=== PATIENT | male | born 1970 | race American Indian/Alaskan Native ===

== ENCOUNTER 2021-08-15 16:39 | Emergency (ER) | payer SELFPAY ==
[2021-08-15 20:56] VITALS: BP 153/104
[2021-08-15] MEDS ORDERED: SODIUM CHLORIDE 0.9% 1000 ML 1,000 ML IV ONE (23:25)
[2021-08-15] MEDS ORDERED: ONDANSETRON 4 MG/2 ML INJ IV ONE (23:25)
--- NOTE | 2021-08-15 23:38 | Emergency Department Report ---
HPI - General Chief Complaint: Dyspnea/Respdistress Time Seen by Provider: 08/15/21 23:23 - HPI HPI: 50-year-old -[place] male presents to the emergency department with a complaint of nausea, vomiting, mixed dry and productive cough, and shortness of breath with exertion. This has been going on for the past 4 to 5 days. Associated with decreased appetite and generalized weakness. He denies any past medical history. No recent travel or sick contacts at home. He is not vaccinated for COVID-19. He has not taken anything for his symptoms prior to presentation today. ED Past Medical Hx - Medications Home Medications: Home Medications Medication Instructions Recorded Confirmed Last Taken Type Albuterol Mdi (or & Nicu Only) 2 puff IH QID PRN #8.5 gram 08/16/21 Unknown Rx [ProAir HFA Inhaler] Azithromycin [Zithromax Z-JAMES] 250 mg PO DAILY #6 tab 08/16/21 Unknown Rx Benzonatate [Tessalon Perles] 100 mg PO Q8HR PRN #20 cap 08/16/21 Unknown Rx Promethazine [Phenergan] 25 mg PO Q8HR PRN #15 tab 08/16/21 Unknown Rx ED Review of Systems ROS: Stated complaint: COLD SYM Other details as noted in HPI Comment: All other systems reviewed and negative Constitutional: weakness. denies: chills, fever Eyes: denies: eye pain, vision change ENT: denies: ear pain, throat pain Respiratory: cough, SOB with exertion Cardiovascular: denies: chest pain, palpitations Gastrointestinal: nausea, vomiting Genitourinary: denies: dysuria, discharge Musculoskeletal: denies: joint swelling, arthralgia Skin: denies: rash, lesions Neurological: denies: numbness, paresthesias Physical Exam - Physical Exam Vital Signs: Vital Signs 08/15/21 20:51 Temperature 99.1 F Pulse Rate 103 H Respiratory 18 Rate Blood Pressure 153/104 [Right] O2 Sat by Pulse 99 Oximetry Physical Exam: GENERAL: The patient is well-developed well-nourished. HENT: Normocephalic. Atraumatic. Patient has moist mucous membranes. EYES: Extraocular motions are intact. NECK: Supple. Trachea is midline. CHEST/LUNGS: Mild rhonchi heard. Bronchospastic cough heard during examination. No tachypnea or accessory muscle use. HEART/CARDIOVASCULAR: Regular. There is mild tachycardia. There is no murmur. ABDOMEN: Abdomen is soft, nontender. Patient has normal bowel sounds. SKIN: Skin is warm and dry. NEURO: The patient is awake, alert, and oriented. The patient is cooperative. The patient has no focal neurologic deficits. Normal speech. MUSCULOSKELETAL: There is no tenderness or deformity. There is no limitation range of motion. ED Course Vital Signs 08/15/21 20:51 Temperature 99.1 F Pulse Rate 103 H Respiratory 18 Rate Blood Pressure 153/104 [Right] O2 Sat by Pulse 99 Oximetry ED Medical Decision Making - Lab Data Result diagrams: 08/15/21 23:41 08/15/21 23:41 Lab Results 08/15/21 08/15/21 Range/Units 23:41 23:41 WBC 4.3 L (4.5-11.0) K/mm3 RBC 5.16 H (3.65-5.03) M/mm3 Hgb 14.8 (11.8-15.2) gm/dl Hct 44.5 (35.5-45.6) % MCV 86 (84-94) fl MCH 29 (28-32) pg MCHC 33 (32-34) % RDW 12.8 L (13.2-15.2) % Plt Count 273 (140-440) K/mm3 [place] % (Auto) Rubber Stamp Maker Add Manual Diff Complete Total Counted 100 Seg Neuts % (Manual) 68.0 (40.0-70.0) % Band Neutrophils % 0 % Lymphocytes % (Manual) 13.0 L (13.4-35.0) % Reactive Lymphs % (Man) 0 % Monocytes % (Manual) 19.0 H (0.0-7.3) % Eosinophils % (Manual) 0 (0.0-4.3) % Basophils % (Manual) 0 (0.0-1.8) % Metamyelocytes % 0 % Myelocytes % 0 % Promyelocytes % 0 % Blast Cells % 0 % Nucleated RBC % Not Reportable Seg Neutrophils # Man 2.9 (1.8-7.7) K/mm3 Band Neutrophils # 0.0 K/mm3 Lymphocytes # (Manual) 0.6 L (1.2-5.4) K/mm3 Abs React Lymphs (Man) 0.0 K/mm3 Monocytes # (Manual) 0.8 (0.0-0.8) K/mm3 Eosinophils # (Manual) 0.0 (0.0-0.4) K/mm3 Basophils # (Manual) 0.0 (0.0-0.1) K/mm3 Metamyelocytes # 0.0 K/mm3 Myelocytes # 0.0 K/mm3 Promyelocytes # 0.0 K/mm3 Blast Cells # 0.0 K/mm3 WBC Morphology Not Reportable Hypersegmented Neuts Not Reportable Hyposegmented Neuts Not Reportable Hypogranular Neuts Not Reportable Smudge Cells Not Reportable Toxic Granulation Not Reportable Toxic Vacuolation Not Reportable Dohle Bodies Not Reportable Pelger-Huet Anomaly Not Reportable Nara Rods Not Reportable Platelet Estimate Consistent w auto Clumped Platelets Not Reportable Plt Clumps, EDTA Not Reportable Large Platelets Few Giant Platelets Rare Platelet Satelliting Not Reportable Plt Morphology Comment Not Reportable RBC Morphology Normal Dimorphic RBCs Not Reportable Polychromasia Not Reportable Hypochromasia Not Reportable Poikilocytosis Not Reportable Anisocytosis Not Reportable Microcytosis Not Reportable Macrocytosis Not Reportable Spherocytes Not Reportable Pappenheimer Bodies Not Reportable Sickle Cells Not Reportable Target Cells Not Reportable Tear Drop Cells Not Reportable Ovalocytes Not Reportable Helmet Cells Not Reportable [place] Bodies Not Reportable Burna Rings Not Reportable Russel Cells Not Reportable Bite Cells Not Reportable Crenated Cell Not Reportable Elliptocytes Not Reportable Acanthocytes (Spur) Not Reportable Rouleaux Not Reportable Hemoglobin C Crystals Not Reportable Schistocytes Not Reportable Malaria parasites Not Reportable [place] Bodies Not Reportable Hem Pathologist Commnt No Sodium 143 (137-145) mmol/L Potassium 4.1 (3.6-5.0) mmol/L Chloride 104.8 (98-107) mmol/L Carbon Dioxide 23 (22-30) mmol/L Anion Gap 19 mmol/L BUN 20 (9-20) mg/dL Creatinine 1.2 (0.8-1.3) mg/dL Estimated GFR > 60 ml/min BUN/Creatinine Ratio 17 % Glucose 117 H (75-100) mg/dL Calcium 8.7 (8.4-10.2) mg/dL Total Bilirubin 0.50 (0.1-1.2) mg/dL AST 33 (5-40) units/L ALT 33 (7-56) units/L Alkaline Phosphatase 70 (35-129) units/L Total Protein 8.0 (6.3-8.2) g/dL Albumin 4.2 (3.9-5) g/dL Albumin/Globulin Ratio 1.1 % Lipase 20 (13-60) units/L - Radiology Data Radiology results: report reviewed CHEST 2 VIEWS INDICATION / CLINICAL INFORMATION: Cough. COMPARISON: None available. FINDINGS: SUPPORT DEVICES: None. HEART / MEDIASTINUM: No significant abnormality. LUNGS / PLEURA: Mild increased interstitial prominence in bilateral lungs No pneumothorax. ADDITIONAL FINDINGS: No significant additional findings. IMPRESSION: 1. Mild increased interstitial prominence in bilateral lungs could represent some interstitial infiltrates however no focal consolidation. - Medical Decision Making This patient presents to the emergency department with a 4 to 5-day history of some nausea with vomiting, mixed dry and productive cough, and some intermittent shortness of breath. On examination he has mild rhonchi heard and a bronchospastic cough. Otherwise he does not appear in any respiratory or acute distress. Chest x-ray shows mild bilateral patchy infiltrates. Labs have been mostly unremarkable including CBC, CMP, lipase. The patient was given some IV fluid resuscitation, a dose of antiemetic, and a Tessalon Perle for his cough. He was reevaluated multiple times for multiple hours and appears improved. Vital signs have been reassuring throughout his ED course including being afebrile. With all the patient's symptoms together, he appears to have a viral syndrome. With the chest x-ray finding of mild bilateral patchy infiltrates, and the fact that he is not vaccinated for COVID-19 during this pandemic, I do have concern that the patient may have contracted a COVID-19 infection. However there is no hypoxia seen on his vital signs and the patient does not appear to require a medical admission at this time. Unfortunately we are unable to test the patient for COVID-19 through the emergency department as we do not have [id number] testing technology. I explained to him my concern for COVID-19 and that he should seek outpatient COVID-19 testing. He has been given a prescription for an antitussive medication, an albuterol inhaler, and antibiotic and antiemetic. He will return to the emergency department with any worsening of his symptoms or with any acute distress. Critical Care Time: No Critical care attestation.: If time is entered above; I have spent that time in minutes in the direct care of this critically ill patient, excluding procedure time. ED Disposition Clinical Impression: Viral syndrome Pneumonia Qualifiers: Pneumonia type: due to unspecified organism Laterality: bilateral Lung location: unspecified part of lung Qualified Code(s): J18.9 - Pneumonia, unspecified organism Nausea & vomiting Qualifiers: Vomiting type: unspecified Qualified Code(s): R11.2 - Nausea with vomiting, unspecified Disposition: HOME / SELF CARE / HOMELESS Is pt being admited?: No Condition: Stable Instructions: Nausea and Vomiting, Adult, Viral Illness, Adult, Community- Acquired Pneumonia, Adult, Bacterial Pneumonia (ED) Additional Instructions: Increase your oral rehydration. Please follow-up with a primary care physician in the next few days. All of your symptoms together appear consistent with a viral syndrome. There are many different viruses. However, given that you are unvaccinated for COVID- 19 and this current pandemic, it is possible that you may have contracted COVID-19. Unfortunately I am unable to test you for COVID-19 at this time through the emergency department. I do recommend seeking outpatient COVID-19 testing. This can be done at some primary care offices, some urgent cares, and there should be a listing of testing facilities through the [facility]. Return to the emergency department with any worsening of your symptoms, new or concerning symptoms not addressed during this current emergency department visit, or with any acute distress. Prescriptions: Promethazine [Phenergan] 25 mg PO Q8HR PRN #15 tab PRN Reason: Nausea Albuterol Mdi (or & Nicu Only) [ProAir HFA Inhaler] 2 puff IH QID PRN #8.5 gram PRN Reason: Shortness Of Breath Benzonatate [Tessalon Perles] 100 mg PO Q8HR PRN #20 cap PRN Reason: Cough Azithromycin [Zithromax Z-JAMES] 250 mg PO DAILY #6 tab Referrals: PCP, Your [Other] - 2-3 Days Time of Disposition: 02:39
--- NOTE | 2021-08-15 23:45 | XRay Report ---
CHEST 2 VIEWS INDICATION / CLINICAL INFORMATION: Cough. COMPARISON: None available. FINDINGS: SUPPORT DEVICES: None. HEART / MEDIASTINUM: No significant abnormality. LUNGS / PLEURA: Mild increased interstitial prominence in bilateral lungs No pneumothorax. ADDITIONAL FINDINGS: No significant additional findings. IMPRESSION: 1. Mild increased interstitial prominence in bilateral lungs could represent some interstitial infilt rates however no focal consolidation. Signer Name: Sp Morrison MD Signed: 08/15/2021 11:41 PM Workstation Name: [id number]
[2021-08-16] MEDS ORDERED: BENZONATATE 100 MG CAP PO ONE (00:12)
[2021-08-16 00:17] LABS: Hematocrit 44.5 % (35.5-45.6); Hemoglobin 14.8 gm/dl (11.8-15.2); Mean Corpuscular HGB Conc 33 % (32-34); Mean Corpuscular Volume 86 fl (84-94); Platelet Count 273 K/mm3 (140-440); Red Blood Count 5.16 M/mm3 (3.65-5.03); Red Cell Distribution Width 12.8 % (13.2-15.2)
[2021-08-16 00:19] LABS: Alanine Aminotransferase 33 units/L (7-56); Albumin 4.2 g/dL (3.9-5); BUN/Creatinine Ratio 17; Blood Urea Nitrogen 20 mg/dL (9-20); Calcium 8.7 mg/dL (8.4-10.2); Hemolysis Index 3
[2021-08-16 01:06] LABS: Basophils % (Manual) 0 % (0.0-1.8); Eosinophils % (Manual) 0 % (0.0-4.3); Giant Platelets Rare; Large Platelets Few; RBC Morphology Normal; Total Cells Counted 100
[2021-08-16 01:07] LABS: Platelet Estimate Consistent w Auto
== END 2021-08-16 03:50 | disposition home or self-care (01) ==
LOC: ED 16:39
DX: B34.9 Viral infection, unspecified (principal); J18.9 Pneumonia, unspecified organism; R11.2 Nausea with vomiting, unspecified
CPT/HCPCS: 36415; 71046; 80053; 83690; 85007; 85025; 96361; 96374; 99284; J2405; J7030; Q0162